=== PATIENT | male | born 1940 | race Caucasian/White ===

== ENCOUNTER 2023-01-03 00:24 | Emergency (ER) | payer OTHER, BC ==
[2023-01-03] MEDS ORDERED: ONDANSETRON 4 MG/2 ML VIAL ONE ×2 (01:20→04:18)
[2023-01-03] MEDS ORDERED: MORPHINE 4 MG/ML SYR ONE ×2 (01:20→04:18)
[2023-01-03 01:44] LABS: Absolute Lymphocytes (CBC) 0.3 K/uL (0.7-4.9); Hematocrit 41.6 % (39.6-49.0); Lymphocytes % 2.2 % (15.3-44.8); MCV 90.7 fL (80-100); MPV 11.3 fL (7.6-11.3); Platelets 91 thou/uL (152-406); RBC Red Blood Cell Count 4.59 M/uL (4.33-5.43)
[2023-01-03 01:48] LABS: Protime INR 1.09
[2023-01-03 02:05] LABS: Bilirubin Direct 0.2 mg/dL (0-0.2); Bilirubin Indirect, Calculated 0.7 mg/dL (0.2-0.8); Bilirubin Total 0.9 mg/dL (0.2-1.0); Magnesium 1.9 mg/dL (1.6-2.4); Potassium 3.3 mEq/L (3.5-5.1); Protein, Total 8.3 g/dL (6.4-8.2); Troponin High Sensitivity 34.1 pg/mL (<58.9)
[2023-01-03 02:16] LABS: Blood Morphology Comment NOT SEEN (NOT SEEN); Platelet Estimate DECR
[2023-01-03] MEDS ORDERED: METOPROLOL TARTRATE 5 MG/5 ML INJ IV ONE (02:26)
[2023-01-03] MEDS ORDERED: METOPROLOL TAR 25 MG TAB ONE (03:12)
--- NOTE | 2023-01-03 03:29 | EDPHYS ---
Physician Documentation [facility] Name: Arjun Tanner Age: 82 yrs Sex: Male : 1940 Arrival Date: 01/03/2023 Time: 00:24 Bed 17 Private MD: ED Physician Farhat Madden HPI: 01/03 00:55 This 82 yrs old Male presents to ER via Unassigned with complaints of Facial sp4 Injury, Nausea. 03:19 82-year-old male with a history of hypertension and prostate cancer presents after he sp4 fell at home at about 7 PM. Patient states she was walking up the stairs and fell backwards onto his buttocks. Patient has developed moderate pain in the right thigh just above the right knee also in the right hip joint. Patient has managed to get up with some assistance but was brought here because of persistent pain. . 03:19 Patient's medications include lisinopril 20 mg daily, HCTZ 25 mg daily, aspirin 81 mg sp4 daily. In the past patient has received radiation therapy for his prostate cancer and he also receives hormonal shot every 6 months at the [facility].. Historical: - Allergies: 01:08 No Known Allergies; kl - Home Meds: 05:47 Lisinopril Oral [Active]; Hydrochlorothiazide Oral [Active]; kl - PMHx: 01:08 Hypertensive disorder; prostate cancer; Irregular heart rate; kl - Immunization history:: Pneumococcal vaccine status is unknown, Flu vaccine is not up to date. - Social history:: Smoking status: Patient denies any tobacco usage or history of. - Family history:: not pertinent. ROS: 03:19 Constitutional: Negative for fever, chills, and weight loss, positive right pelvic sp4 pain, right hip pain, right thigh pain 03:19 MS/extremity: Positive for contusion, Positive right hip pain, right thigh pain, right sp4 pelvic pain.. 03:19 All other systems are negative. Exam: 03:19 Constitutional: This is a well developed, well nourished patient who is awake, alert, sp4 and in no acute distress. Patient has a regular tachycardia on the monitor. Elderly debilitated male.. Hard of hearing. Patient managed to stand up with some assistance. Head/Face: Normocephalic, atraumatic. Eyes: Pupils equal round and reactive to light, extra-ocular motions intact. Lids and lashes normal. Conjunctiva and sclera are not injected. Cornea within normal limits. Periorbital areas with no swelling, redness, or edema. ENT: Nares patent. No nasal discharge, no septal abnormalities noted. Tympanic membranes are normal and external auditory canals are clear. Oropharynx with no redness, swelling, or masses, exudates, or evidence of obstruction, uvula midline. Mucous membranes moist. Neck: Trachea midline, no thyromegaly or masses palpated, and no cervical lymphadenopathy. Supple, full range of motion without nuchal rigidity, or vertebral point tenderness. Chest/axilla: Normal chest wall appearance and motion. Nontender with no deformity. No lesions are appreciated. Cardiovascular: Irregularly irregular tachycardia, intact peripheral pulses. No gallops, murmurs, or rubs. Normal PMI, no JVD. No pulse deficits. Respiratory: Lungs have equal breath sounds bilaterally, clear to auscultation and percussion. No rales, rhonchi or wheezes noted. No increased work of breathing, no retractions or nasal flaring. Abdomen/GI: Soft, non-tender, with normal bowel sounds. No distension or tympany. No guarding or rebound. No evidence of tenderness throughout. Back: No spinal tenderness. No costovertebral tenderness. Male : Normal genitalia with no discharge or lesions. Positive left inguinal hernia Skin: Warm, dry with normal turgor. Normal color with no rashes, no lesions, and no evidence of cellulitis. MS/ Extremity: Pulses equal, no cyanosis. Neurovascular intact. Full, normal range of motion. Positive tenderness right proximal thigh, tenderness of right distal thigh, tenderness right above the right knee. Right patellar tenderness as well. No deformity or discoloration. Normal passive range of motion. Neurovascular status is intact Neuro: Awake and alert, GCS 15, oriented to person, place, time, and situation. Cranial nerves II-XII grossly intact. Motor strength 5/5 in all extremities. Sensory grossly intact. Psych: Awake, alert, with orientation to person, place and time. Behavior, mood, and affect are within normal limits 03:19 ECG was reviewed by the Attending Physician. EKG time 0 120 atrial fibrillation with sp4 rapid ventricular response at the rate of 130, left axis deviation, left bundle branch block 03:28 Repeat EKG at 0308, atrial fibrillation at the rate of 86, no no sign of acute IL sp4 based on Sgarbossa criteria. There is left axis deviation and left bundle branch block. Rate has improved after IV metoprolol. Vital Signs: 01:05 BP 152 / 112; Pulse 33; Resp 24; Temp 97.7(O); Pulse Ox 93% on R/A; Pain 8/10; kl 01:28 BP 159 / 74; Pulse 130; Resp 36; Pulse Ox 86% on R/A; jw7 01:30 Pulse Ox 96% on 2 lpm NC; jw7 02:30 BP 125 / 80; Pulse 87; Resp 32; Pulse Ox 99% on 2 lpm NC; jw7 03:04 Weight 75.4 kg; vc1 04:19 BP 115 / 68; Pulse 92; Resp 25; Pulse Ox 97% on 2 lpm NC; kl 04:30 BP 107 / 67; Pulse 83; Resp 23; Pulse Ox 96% on 2 lpm NC; jw7 05:00 BP 92 / 58; Pulse 78; Resp 20; Pulse Ox 95% on 2 lpm NC; 7 05:30 BP 88 / 54; Pulse 80; Resp 23; Pulse Ox 97% on 2 lpm NC; jw7 06:00 BP 81 / 52; Pulse 74; Resp 21; Pulse Ox 99% on 2 lpm NC; jw7 06:30 BP 89 / 55; Pulse 70; Resp 20 S; Pulse Ox 98% on 2 lpm NC; jw7 07:59 BP 97 / 67; Pulse 66; Resp 14 S; Pulse Ox 97% on 2 lpm NC; kc6 01:05 Pain Scale: Adult kl Mary Coma Score: 03:30 Eye Response: spontaneous(4). Motor Response: obeys commands(6). Verbal Response: sp4 oriented(5). Total: 15. MDM: 01:04 Patient medically screened. sp4 03:17 ED course: X ray - EXAM DESCRIPTION: Knee Right 3 View 01/03/2023 3:06 AM CDT CLINICAL sp4 HISTORY: 82 years, Male, fall, right knee pain COMPARISON: None FINDINGS: 3 X-ray views of the right knee (Frontal, lateral and oblique views) were performed. There is no evidence for fracture or dislocation. There are no gross intraosseous lesions. No gross lytic the soft tissue abnormality is identified. Minimal early spurring/degenerative changes There is no joint effusion. There is no periostitis. IMPRESSION: No evidence of fracture or dislocation.. ED course: X ray femur - EXAM DESCRIPTION: Femur Right CLINICAL HISTORY: 82 years, Male, fall, leg pain Femur Right COMPARISON: None. FINDINGS: 2 X-ray views of the Right femur were performed. There is no acute fracture or dislocation. There is no focal soft tissue swelling. There are no retained opaque foreign bodies. Limited evaluation of the right hip joint suggests mild deformity/degenerative changes. The bony pelvis is grossly normal in appearance. IMPRESSION: No acute bony abnormality. Limited evaluation of the right hip joint suggests mild deformity/degenerative changes right hip joint.. ED course: X ray chest - FINDINGS: Single view of the chest was obtained portable. No prior films are available for comparison. The patient is slumped towards the left. The lung volume is slightly decreased. The heart is prominent.. The thoracic aorta demonstrate mildly tortuous. Costophrenic angles are sharp. No areas of consolidation or masses are seen. The rest of the soft tissue and bony structures demonstrate to be unremarkable. IMPRESSION: Mild cardiomegaly. Mildly decreased lung volume.. 03:30 Differential diagnosis: Contusion of Hematoma on Laceration of Concussion. Data sp4 reviewed: vital signs, nurses notes, lab test result(s), cardiac enzymes, CBC, electrolytes, hepatic panel, EKG, radiologic studies, CT scan, plain films. Consideration of Admission/Observation Escalation of care including admission/observation considered. ED course: Patient will be discussed with [facility] about his new onset atrial fibrillation with RVR.. Patient may or may not be accepted by the [facility]. . 04:01 ED course: CT pelvis - Addendum: Upon further review using of the images there is a sp4 fracture involving the right femoral neck best demonstrated on axial image 85/148- 91/148 and sagittal image 54/[id number]. IMPRESSION: Diffuse bony osteopenia. Subcapital right femoral neck fracture with no significant displacement. Small bilateral inguinal hernias containing omentum. Moderate hydrocele Electronically signed by: Diallo Adhikari MD 01/03/2023 3:52 AM. 01/03 01:04 Order name: Basic Metabolic Panel; Complete Time: 02:46 sp4 01/03 01:04 Order name: CBC with Diff; Complete Time: 02:46 sp4 01/03 01:04 Order name: LFT's; Complete Time: 02:46 sp4 01/03 01:04 Order name: Magnesium; Complete Time: 02:46 sp4 01/03 01:04 Order name: NT PRO-BNP; Complete Time: 02:46 sp4 01/03 01:04 Order name: PT-INR; Complete Time: 02:46 sp4 01/03 01:04 Order name: Troponin HS; Complete Time: 02:46 sp4 01/03 01:47 Order name: Manual Differential; Complete Time: 02:46 EDMS 01/03 02:06 Order name: CT Pelvis wo Cont sp4 01/03 02:07 Order name: Chest Single View XRAY sp4 01/03 02:07 Order name: Femur Right XRAY sp4 01/03 02:07 Order name: Knee Right 3 View XRAY sp4 01/03 01:04 Order name: EKG; Complete Time: 01:04 sp4 01/03 02:46 Order name: EKG; Complete Time: 02:47 sp4 01/03 01:04 Order name: Cardiac monitoring; Complete Time: 01:39 sp4 01/03 01:04 Order name: EKG - Nurse/Tech; Complete Time: 01:39 sp4 01/03 01:04 Order name: IV Saline Lock; Complete Time: 01:39 sp4 01/03 01:04 Order name: Labs collected and sent; Complete Time: 01:39 sp4 01/03 01:04 Order name: O2 Per Protocol; Complete Time: 01:39 sp4 01/03 01:04 Order name: O2 Sat Monitoring; Complete Time: 01:39 sp4 01/03 02:46 Order name: EKG - Nurse/Tech; Complete Time: 03:25 sp4 01/03 05:19 Order name: NPO; Complete Time: 05:30 sp4 EC:19 Rate is 130 beats/min. Rhythm is irregularly irregular, A fib. QRS interval is sp4 prolonged. QT interval is normal. No ST changes noted. Clinical impression: Atrial Fibrillation. Administered Medications: 01:38 Drug: Ondansetron IVP 4 mg Route: IVP; Site: right forearm; jw7 02:22 Follow up: Response: No adverse reaction jw7 01:39 Drug: morphine IVP or IV 4 mg Route: IVP; Infused Over: 4 mins; Site: right forearm; jw7 02:22 Follow up: Response: No adverse reaction jw7 02:23 Drug: Metoprolol IVP 5 mg Route: IVP; Site: right forearm; jw7 05:30 Follow up: Response: No adverse reaction jw7 03:25 Drug: Metoprolol PO 25 mg Route: PO; jw7 05:30 Follow up: Response: No adverse reaction jw7 03:33 Drug: Aspirin PO Chewable Tablet 324 mg Route: PO; jw7 05:30 Follow up: Response: No adverse reaction jw7 03:33 Drug: Enoxaparin Sub-Q 80 mg Route: Sub-Q; Site: abdomen; jw7 05:25 Follow up: Response: No adverse reaction kl 04:10 Drug: morphine IVP or IV 4 mg Route: IVP; Infused Over: 4 mins; Site: right antecubital;kl 05:25 Follow up: Response: No adverse reaction kl 04:15 Drug: Ondansetron IVP 4 mg Route: IVP; Site: right forearm; kl 05:24 Follow up: Response: No adverse reaction kl 05:24 Drug: NS 0.9% IV 500 ml Route: IV; Rate: bolus; Site: right forearm; kl 06:07 Follow up: Response: No adverse reaction; IV Status: Completed infusion; IV Intake: jw7 500ml 06:16 Drug: NS 0.45 % with KCl IV 20 mEq/L 1000 ml Route: IV; Rate: 125 ml/hr; Site: right jw7 forearm; 08:12 Follow up: Response: No adverse reaction; IV Status: Infusion continued upon transfer; kc6 IV Intake: 1000ml Disposition Summary: 01/03/23 03:29 Transfer Ordered Transfer Location: [facility] sp4 Reason: Higher level of care sp4 Condition: Fair sp4 Problem: new sp4 Symptoms: have improved sp4 [facility] Jack Granados MD (01/03/23 08:12) kc6 Diagnosis - Persistent atrial fibrillation sp4 - Right subcapital femoral neck fracture, acute fall at home, new onset atrial sp4 fibrillation with RVR, Discharge Instructions: - Discharge Summary Sheet rv1 Forms: - SBAR form rv1 - Medication Reconciliation Form sp4 Signatures: Dispatcher [employer] Leann Gann RN RN kl Rosina Coffey RN RN jw7 Ibis Klein RN RN kc6 Farhat Madden MD MD sp4 Corrections: (The following items were deleted from the chart) 05:19 03:29 [facility] accepting MD [email or web address] sp4 08:12 05:19 [facility] accepting MD Jack [email or web address] kc6
--- NOTE | 2023-01-03 03:29 | ER ---
Nurse's Notes [facility] Name: Arjun Tanner Age: 82 yrs Sex: Male : 1940 Arrival Date: 01/03/2023 Time: 00:24 Bed 17 Private MD: Diagnosis: Persistent atrial fibrillation; Right subcapital femoral neck fracture, acute fall at home, new onset atrial fibrillation with RVR, Presentation: 01/03 01:05 Chief complaint: Patient states: fell backwards landing on buttocks pt c/o left knee kl bilateral buttock pain and right upper leg pain. Coronavirus screen: Vaccine status: Patient reports receiving the 2nd dose of the covid vaccine. Ebola Screen: Patient negative for fever greater than or equal to 101.5 degrees Fahrenheit, and additional compatible Ebola Virus Disease symptoms. Initial Sepsis Screen: Does the patient meet any 2 criteria? No. Patient's initial sepsis screen is negative. Does the patient have a suspected source of infection? No. Patient's initial sepsis screen is negative. Risk Assessment: Do you want to hurt yourself or someone else? Patient reports no desire to harm self or others. Onset of symptoms was January 02, 2023 at 19:30. 01:05 Method Of Arrival: Wheelchair 01:05 Acuity: ALMA 3 kl Triage Assessment: 01:10 General: Appears distressed, uncomfortable, Behavior is cooperative, anxious. Pain: Complains of pain in right quadriceps and right knee Pain currently is 7 out of 10 on a pain scale. at worst was 10 out of 10 on a pain scale. EENT: No deficits noted. Neuro: No deficits noted. Cardiovascular: Denies chest pain, Rhythm is atrial fibrillation with rapid ventricular response. Respiratory: No deficits noted. GI: No deficits noted. : No deficits noted. Derm: No deficits noted. Historical: - Allergies: 01:08 No Known Allergies; kl - Home Meds: 05:47 Lisinopril Oral [Active]; Hydrochlorothiazide Oral [Active]; kl - PMHx: 01:08 Hypertensive disorder; prostate cancer; Irregular heart rate; kl - Immunization history:: Pneumococcal vaccine status is unknown, Flu vaccine is not up to date. - Social history:: Smoking status: Patient denies any tobacco usage or history of. - Family history:: not pertinent. Screenin:[facility] Fall Risk Assessment (Adult) History of falling in the last 3 months, kl including since admission Yes- single mechanical fall (1 pt) Confusion or Disorientation No (0 pts) Intoxicated or Sedated No (0 pts) Impaired Gait Yes (1 pt) Mobility Assist Device Used Yes (1 pt) Altered Elimination No (0 pt) Score/Fall Risk Level 3 or more points = High Risk Oriented to surroundings, Maintained a safe environment, Educated pt \T\ family on fall prevention, incl call for assistance when getting out of bed, Utilized family, sitter, or virtual laborer shellfish processing as indicated. Abuse screen: Denies threats or abuse. Nutritional screening: No deficits noted. Tuberculosis screening: No symptoms or risk factors identified. Primary Survey: 01:00 NO uncontrolled hemorrhage observed. A: The client is awake and alert. The airway is jw7 patent. Breathing/Chest: Respiratory effort: spontaneous, unlabored, Breath sounds: clear, bilaterally. Respiratory pattern: tachypnea, Chest inspection: symmetrical rise and fall of the chest. Circulation: No external hemorrhage present. Regular and strong central pulse, skin warm/dry/normal color. Pulses: palpable right radial artery, right posterior tibial artery, right dorsalis pedis artery, left radial artery, left posterior tibial artery and left dorsalis pedis artery. Skin color: pink, Skin temperature: warm, dry. Disability Pupils are equal, round, reactive to light and accommodation. Client is alert. Client responds to verbal stimuli. Exposure/Environment: There is no evidence of uncontrolled external bleeding. Assessment: 02:00 Reassessment: Patient appears in no apparent distress at this time. No changes from jw7 previously documented assessment. Patient and/or family updated on plan of care and expected duration. Pain level reassessed. Patient is alert, oriented x 3, equal unlabored respirations, skin warm/dry/pink. Patient states symptoms have not improved. 03:24 Reassessment: Patient appears in no apparent distress at this time. No changes from jw7 previously documented assessment. Patient and/or family updated on plan of care and expected duration. Pain level reassessed. Patient is alert, oriented x 3, equal unlabored respirations, skin warm/dry/pink. Patient states symptoms have improved. 04:30 Reassessment: Patient appears in no apparent distress at this time. No changes from jw7 previously documented assessment. Patient and/or family updated on plan of care and expected duration. Pain level reassessed. Patient is alert, oriented x 3, equal unlabored respirations, skin warm/dry/pink. 05:30 Reassessment: Patient appears in no apparent distress at this time. Patient and/or jw7 family updated on plan of care and expected duration. Pain level reassessed. Patient is alert, oriented x 3, equal unlabored respirations, skin warm/dry/pink. blood pressure dropped to 88/54 (62), 78 HR, 97% O2 on 2L nc, and RR 23. Dr Ryan notified and 500ml bolus administered. Speech is clear and appropriate, and responds easily to verbal stimuli. 06:02 Reassessment: Patient appears in no apparent distress at this time. Patient and/or jw7 family updated on plan of care and expected duration. Pain level reassessed. Patient is alert, oriented x 3, equal unlabored respirations, skin warm/dry/pink. BP 85/68 (73), HR 73, 99% O2 on 2L nc, RR 19. normal speech, responds easily to verbal stimuli. 06:49 Reassessment: Patient appears in no apparent distress at this time. No changes from jw7 previously documented assessment. Patient and/or family updated on plan of care and expected duration. Pain level reassessed. Patient is alert, oriented x 3, equal unlabored respirations, skin warm/dry/pink. 07:00 General: Appears in no apparent distress. comfortable, Behavior is calm, cooperative, kc6 appropriate for age. Neuro: Level of Consciousness is awake, alert, obeys commands, Oriented to person, place, time, situation, Appropriate for age. 07:59 Reassessment: Patient appears in no apparent distress at this time. No changes from kc6 previously documented assessment. Patient and/or family updated on plan of care and expected duration. Pain level reassessed. Patient is alert, oriented x 3, equal unlabored respirations, skin warm/dry/pink. Vital Signs: 01:05 BP 152 / 112; Pulse 33; Resp 24; Temp 97.7(O); Pulse Ox 93% on R/A; Pain 8/10; kl 01:28 BP 159 / 74; Pulse 130; Resp 36; Pulse Ox 86% on R/A; jw7 01:30 Pulse Ox 96% on 2 lpm NC; jw7 02:30 BP 125 / 80; Pulse 87; Resp 32; Pulse Ox 99% on 2 lpm NC; jw7 03:04 Weight 75.4 kg; vc1 04:19 BP 115 / 68; Pulse 92; Resp 25; Pulse Ox 97% on 2 lpm NC; kl 04:30 BP 107 / 67; Pulse 83; Resp 23; Pulse Ox 96% on 2 lpm NC; jw7 05:00 BP 92 / 58; Pulse 78; Resp 20; Pulse Ox 95% on 2 lpm NC; jw7 05:30 BP 88 / 54; Pulse 80; Resp 23; Pulse Ox 97% on 2 lpm NC; jw7 06:00 BP 81 / 52; Pulse 74; Resp 21; Pulse Ox 99% on 2 lpm NC; jw7 06:30 BP 89 / 55; Pulse 70; Resp 20 S; Pulse Ox 98% on 2 lpm NC; jw7 07:59 BP 97 / 67; Pulse 66; Resp 14 S; Pulse Ox 97% on 2 lpm NC; kc6 01:05 Pain Scale: Adult kl Mary Coma Score: 03:30 Eye Response: spontaneous(4). Motor Response: obeys commands(6). Verbal Response: sp4 oriented(5). Total: 15. ED Course: 00:27 Patient arrived in ED. mr 00:55 Farhat Madden MD is Attending Physician. sp4 01:00 Arm band placed on right wrist. Family accompanied patient. jw7 01:08 Triage completed. kl 01:27 Rosina Coffey, RN is Primary Nurse. jw7 01:28 Initial lab(s) drawn, by de, sent to lab. EKG done, by ED staff, reviewed by Farhat Madden MD. Inserted saline lock: 20 gauge in right forearm, using aseptic technique. Blood collected. 01:39 Basic Metabolic Panel Sent. jw7 01:39 CBC with Diff Sent. jw7 01:39 LFT's Sent. jw7 01:39 Magnesium Sent. jw7 01:39 NT PRO-BNP Sent. jw7 01:39 PT-INR Sent. jw7 01:39 Troponin HS Sent. jw7 02:53 Chest Single View XRAY In Process Unspecified. EDMS 02:53 Femur Right XRAY In Process Unspecified. EDMS 02:53 Knee Right 3 View XRAY In Process Unspecified. EDMS 03:00 Initiated transfer with Rene at [facility]. rv1 03:07 CT Pelvis wo Cont In Process Unspecified. EDMS 04:21 Patient has correct armband on for positive identification. Bed in low position. Call kl light in reach. Side rails up X2. 04:22 Client placed on continuous cardiac and pulse oximetry monitoring. NIBP monitoring kl applied. 04:27 Called to get update on transfer, Rene said still waiting on ER to review pt rv1 clinicals. 07:00 Report received from Rosina Coffey RN. kc6 08:11 No provider procedures requiring assistance completed. Patient transferred, IV remains kc6 in place. Administered Medications: 01:38 Drug: Ondansetron IVP 4 mg Route: IVP; Site: right forearm; jw7 02:22 Follow up: Response: No adverse reaction jw7 01:39 Drug: morphine IVP or IV 4 mg Route: IVP; Infused Over: 4 mins; Site: right forearm; jw7 02:22 Follow up: Response: No adverse reaction jw7 02:23 Drug: Metoprolol IVP 5 mg Route: IVP; Site: right forearm; jw7 05:30 Follow up: Response: No adverse reaction jw7 03:25 Drug: Metoprolol PO 25 mg Route: PO; jw7 05:30 Follow up: Response: No adverse reaction jw7 03:33 Drug: Aspirin PO Chewable Tablet 324 mg Route: PO; jw7 05:30 Follow up: Response: No adverse reaction jw7 03:33 Drug: Enoxaparin Sub-Q 80 mg Route: Sub-Q; Site: abdomen; jw7 05:25 Follow up: Response: No adverse reaction kl 04:10 Drug: morphine IVP or IV 4 mg Route: IVP; Infused Over: 4 mins; Site: right antecubital;kl 05:25 Follow up: Response: No adverse reaction kl 04:15 Drug: Ondansetron IVP 4 mg Route: IVP; Site: right forearm; kl 05:24 Follow up: Response: No adverse reaction kl 05:24 Drug: NS 0.9% IV 500 ml Route: IV; Rate: bolus; Site: right forearm; kl 06:07 Follow up: Response: No adverse reaction; IV Status: Completed infusion; IV Intake: jw7 500ml 06:16 Drug: NS 0.45 % with KCl IV 20 mEq/L 1000 ml Route: IV; Rate: 125 ml/hr; Site: right jw7 forearm; 08:12 Follow up: Response: No adverse reaction; IV Status: Infusion continued upon transfer; kc6 IV Intake: 1000ml Medication: 05:54 VIS not applicable for this client. jw7 Intake: 06:07 IV: 500ml; Total: 500ml. jw7 08:12 IV: 1000ml; Total: 1500ml. kc6 Outcome: 03:29 ER care complete, transfer ordered by . sp4 08:11 Transferred by ground EMS to [facility] Transfer form completed. kc6 08:11 Condition: stable 08:11 Instructed on the need for transfer. 08:12 Patient left the ED. kc6 Signatures: Dispatcher [employer] EDMS Leann Granda RN Karina Whittington MacgirishMyra, RN Rosina Germain RN RN jw7 Campbell, Kaitlyn, RN RN kc6 Villegas, Rebecca rv1 Potepalov, Sergey, MD MD sp4 Corrections: (The following items were deleted from the chart) 05:54 05:52 Arm band placed on right wrist. jw7 jw7 05:54 05:52 Family accompanied patient. jw7 jw7 06:06 05:30 Reassessment: Patient appears in no apparent distress at this time. Patient jw7 and/or family updated on plan of care and expected duration. Pain level reassessed. Patient is alert, oriented x 3, equal unlabored respirations, skin warm/dry/pink. blood pressure dropped to 88/54 (62), 78 HR, 97% O2 on 2L nc, and RR 23. Dr Ryan notified and 500ml bolus administered. jw7 06:06 06:02 Reassessment: Patient appears in no apparent distress at this time. Patient jw7 and/or family updated on plan of care and expected duration. Pain level reassessed. Patient is alert, oriented x 3, equal unlabored respirations, skin warm/dry/pink. BP 85/68 (73), HR 73, 99% O2 on 2L nc, RR 19. Awake, alert and oriented x4, normal speech, responds easily to verbal stimuli. jw7
[2023-01-03] MEDS ORDERED: ASPIRIN 81 MG CHEWABLE TABLET ONE (03:39)
[2023-01-03] MEDS ORDERED: ENOXAPARIN 80 MG/0.8 ML SQ ONE (03:40)
[2023-01-03] MEDS ORDERED: NA CHLORIDE 0.9% 500 ML ONE (05:32)
[2023-01-03] MEDS ORDERED: D5.45NS W/KCL 20MEQ 1,000 ML IV ONE (06:21)
[2023-01-03 08:37] VITALS: TEMP 97.7
[2023-01-03 08:52] VITALS: BP 97/67; O2SAT 97
--- NOTE | 2023-01-03 13:08 | RAD REPORT ---
EXAM DESCRIPTION: RAD - Knee Right 3 View - 01/03/2023 2:51 am CLINICAL HISTORY: 82 years, Male, fall, right knee pain COMPARISON: None FINDINGS: 3 X-ray views of the right knee (Frontal, lateral and oblique views) were performed. There is no evidence for fracture or dislocation. There are no gross intraosseous lesions. No glenn ss lytic the soft tissue abnormality is identified. Minimal early spurring/degenerative changes There is no joint effusion. There is no periostitis. IMPRESSION: No evidence of fracture or dislocation. Electronically signed by: Diallo Adhikari MD 01/03/2023 3:06 AM CDT Due to temporary technical issues with the PACS/Fluency reporting system, reports are being signed by the in house radiologist without review as a courtesy to ensure prompt reporting. The interpreting r adiologist is fully responsible for the content of the report.
--- NOTE | 2023-01-03 13:10 | RAD REPORT ---
EXAM DESCRIPTION: RAD - Femur Right - 01/03/2023 2:51 am CLINICAL HISTORY: 82 years, Male, fall, leg pain Femur Right COMPARISON: None. FINDINGS: 2 X-ray views of the Right femur were performed. There is no acute fracture or dislocation. There is no focal soft tissue swelling. There are no retained opaque foreign bodies. Limited evaluation of the right hip joint suggests mild deformity/degenerative changes. The bony pelvis is grossly normal in appearance. IMPRESSION: No acute bony abnormality. Limited evaluation of the right hip joint suggests mild defor mity/degenerative changes right hip joint. Electronically signed by: Diallo Adhikari MD 01/03/2023 3:05 AM CDT Due to temporary technical issues with the PACS/Fluency reporting system, reports are being signed by the in house radiologist without review as a courtesy to ensure prompt reporting. The interpreting r adiologist is fully responsible for the content of the report.
--- NOTE | 2023-01-03 13:12 | RAD REPORT ---
EXAM DESCRIPTION: RAD - Chest Single View - 01/03/2023 2:51 am CLINICAL HISTORY: 82 years, Male, CHEST PAIN COMPARISON: None. FINDINGS: Single view of the chest was obtained portable. No prior films are available for compariso n. The patient is slumped towards the left. The lung volume is slightly decreased. The heart is promi nent.. The thoracic aorta demonstrate mildly tortuous. Costophrenic angles are sharp. No areas of c onsolidation or masses are seen. The rest of the soft tissue and bony structures demonstrate to be unremarkable. IMPRESSION: Mild cardiomegaly. Mildly decreased lung volume. Electronically signed by: Diallo Adhikari MD 01/03/2023 3:05 AM CDT Due to temporary technical issues with the PACS/Fluency reporting system, reports are being signed by the in house radiologist without review as a courtesy to ensure prompt reporting. The interpreting r adiologist is fully responsible for the content of the report.
--- NOTE | 2023-01-03 13:13 | RAD REPORT ---
EXAM DESCRIPTION: CT - Pelvis Wo Cont - 01/03/2023 7:06 am ADDENDUM #1 Addendum: Upon further review using of the images there is a fracture involving the right femoral neck best dem onstrated on axial image [id number] and sagittal image [id number]. IMPRESSION: Diffuse bony osteopenia. Subcapital right femoral neck fracture with no significant displacement. Small bilateral inguinal hernias containing omentum. Moderate hydrocele Electronically signed by: Diallo Adhikari MD 01/03/2023 3:52 AM CDT End of Addendum EXAM DESCRIPTION: Pelvis Wo Cont 01/03/2023 3:25 AM CDT CLINICAL HISTORY: 82 years, Male, BLUNT TRAUMA COMPARISON: None. TECHNIQUE: Multiple transaxial tomograms of the pelvis were obtained utilizing 2 mm slice thickness at 2 mm interval reconstruction without the administration of IV contrast. 2-D multiplanar reformats in sagittal and coronal plane were generated and reviewed. This exam was performed according to our departmental dose-optimization protocol, which includes auto mated exposure control, adjustment of the mA and/or kV according to patient size and/or use of iterat xiomara reconstruction technique. FINDINGS: The bone windows demonstrate mild bony neutropenia. Minimal degenerative changes at L5/S1. Iliac bones, sacrum, sacroiliac joint, bilateral iliac bones, superior and inferior pubic rami demon strate to be unremarkable. Bilateral hip joints demonstrate to be within normal limits. No evidence f or acute bony injuries. Visualized portions of the large and small bowel demonstrate to unremarkable. Minimal diverticulosis. Small left abdominal wall hernia containing bowel with no evidence for incarceration. 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 The prostate gland is unremarkable. Small bilateral inguinal hernias containing omentum. Moderate lef t hydrocele. IMPRESSION: No evidence for acute bony injuries. Small left abdominal wall hernia containing bowel with no evidence for incarceration. Small bilateral inguinal hernias containing omentum. Moderate left hydrocele. Electronically signed by: Diallo Adhikari MD 01/03/2023 3:28 AM CDT Due to temporary technical issues with the PACS/Fluency reporting system, reports are being signed by the in house radiologist without review as a courtesy to ensure prompt reporting. The interpreting r adiologist is fully responsible for the content of the report.
--- NOTE | 2023-01-03 18:26 | EKG ---
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
--- NOTE | 2023-01-03 18:26 | EKG ---
Test Date: 2023-01-03 Test Time: 03:08:28 Switchboard Mechanic: JINA MEASUREMENT RESULTS: Intervals: Rate: 86 [place]: QRSD: 134 QT: 406 QTc: 485 [place]: P: GA: QRS: -72 T: 84 INTERPRETIVE STATEMENTS: Atrial fibrillation Left axis deviation Left bundle branch block Abnormal ECG Compared to ECG 01/03/2023 01:20:31 No significant changes Electronically Signed On 01-03-23 18:24:50 CDT by Boris Cabrera
== END 2023-01-03 08:12 ==
LOC: ER 00:24
DX: I48.19 Other persistent atrial fibrillation (principal); S72.011A Unspecified intracapsular fracture of right femur, initial encounter for closed fracture; W10.9XXA Fall (on) (from) unspecified stairs and steps, initial encounter; I10 Essential (primary) hypertension; Z85.46 Personal history of malignant neoplasm of prostate; Z79.82 Long term (current) use of aspirin
CPT/HCPCS: 93005 ×2; 85025; 80048; 36415; 83735; 85610; 80076; 84484; 83880; 72192; 71045; 73562; 73552; J2405 ×2; J7040